=== PATIENT | female | born 1995 | race Caucasian/White ===

== ENCOUNTER 2017-03-14 10:21 | Outpatient (CLI) | payer OTHER | END 2017-03-14 10:22 | LOC: LABRHC 10:21 | PROVIDERS: ATTEND Physician Assistant | DX: N89.8 Other specified noninflammatory disorders of vagina (principal); R30.0 Dysuria | CPT/HCPCS: 87086; 87491; 87591 ==

== ENCOUNTER 2017-04-19 14:53 | Outpatient (CLI) | payer OTHER ==
[2017-04-19 15:12] LABS: EOSINOPHILS % 4.4 % (0.0-6.8); MEAN CORPUSCULAR HEMOGLOBIN 28.4 pg (28.0-34.0); MEAN CORPUSCULAR VOLUME 86.2 fl (80.0-100.0); NEUTROPHILS # 3.4 # k/uL (1.4-7.7)
[2017-04-19 15:36] LABS: eGFR (African) > 60; eGFR (Non-African) > 60
== END 2017-04-19 14:54 ==
LOC: LAB 14:53
PROVIDERS: ATTEND Psychiatry & Neurology Psychiatry
DX: Z79.899 Other long term (current) drug therapy (principal)
CPT/HCPCS: 36415; 80053; 82248; 83036; 85025

== ENCOUNTER 2017-06-19 09:19 | Emergency (ER) | payer OTHER ==
--- NOTE | 2017-06-19 09:34 | ED Physician Documentation ---
General Adult - HISTORIAN Historian: patient - HPI Stated Complaint: L flank pain Chief Complaint: General Adult Onset: days ago (4) Timing: still present Severity: moderate Further Comments: yes (Pt is a 21 yo female with L flank pain x 4 days. Pt's LMP began 2 days ago. No n/v, no fever. Pt reports normal bm's. Pt had pneumonia several months ago, which was difficult to treat. Pt wonders if this could be pneumonia again.) - ROS CONST: no problems EYES/ENT: none CVS/RESP: none GI/: abdominal pain MS/SKIN/LYMPH: none - PAST HX Past History: other (bipolar d/o) Allergies/Adverse Reactions: Allergies Allergy/AdvReac Type Severity Reaction Status Date / Time No Known Drug Allergies Allergy Verified 06/19/17 09:48 - SOCIAL HX Smoking History: non-smoker - FAMILY HX Family History: No - REVIEWED ASSESSMENTS Nursing Assessment Reviewed: Yes Vitals Reviewed: Yes Progress - Progress Progress: CXR: No acute pulmonary process. X-ray abd: No obstruction. Moderate large bowel stool - constipation. No suspicious calcifications by plain film sensitivity. d/c instructions: Drink plenty of fluids such as Gatorade. May try [id number] laxatives, such as Magnesium Citrate--drink 1/2 bottle , if no bowel movement after 6 hrs, drink the remaining 1/2 bottle. General Adult Physical Exam - PHYSICAL EXAM GENERAL APPEARANCE: mild distress EENT: pharynx normal NECK: normal inspection, supple RESPIRATORY: no resp distress, chest non-tender, breath sounds normal CVS: reg rate & rhythm, heart sounds normal ABDOMEN: soft, no organomegaly, normal bowel sounds BACK: normal inspection, no CVA tenderness SKIN: warm/dry, normal color EXTREMITIES: non-tender, normal range of motion, no evidence of injury NEURO: oriented X3, motor nml, sensation nml Discharge Clincal Impression: abd pain, constipation Referrals: Primary Doctor,No [Primary Care Provider] - Condition: Stable Disposition: 01 HOME, SELF-CARE Decision to Admit: NO Decision Time: 12:27
[2017-06-19 09:47] VITALS: BP 105/69
--- NOTE | 2017-06-19 11:34 | Diagnostic Imaging Report ---
[facility] [address] [facility] [address] [place], [place]. [address] Report Submission Date: Jun 19, 2017 11:14:07 AM CDT Patient Study Name: VADIM ALFORD Date: Jun 19, 2017 10:52:01 AM CDT Modality Type: CR Gender: F Description: CHEST : 89 Institution: [facility] Physician: YAEL WANG - ER Examination: PA and lateral chest. History: Evaluate lung mccray. Comparison exam: None available. Findings: PA lateral chest demonstrate a normal cardiac and mediastinal silhouette. No focal infiltrate. No effusion. No blunting of the costophrenic margins. Osseous structures are appropriate for age. Impression: No acute pulmonary process. Electronically signed on Jun 19, 2017 11:14:07 AM CDT by: Teo VAIL
--- NOTE | 2017-06-19 11:36 | Diagnostic Imaging Report ---
[facility] [place] [facility] [address] [facility].[address] [address] Report Submission Date: Jun 19, 2017 11:16:18 AM CDT Patient Study Name: VADIM ALFORD Date: Jun 19, 2017 10:56:38 AM CDT Modality Type: CR Gender: F Description: ABDOMEN : 89 Institution: [facility] [place] [facility] Physician: YAEL WANG - ER Examination: Abdomen History: Abdominal discomfort Findings: 2 views obtained of the abdomen. No abnormal dilation of the large or small bowel. Air and stool throughout the large bowel. Moderate to large amount of stool within the cecum, ascending colon and rectosigmoid region. No suspicious calcification projecting over the renal fossa or the lower pelvic region. Osseous structures are appropriate for age. Impression: No obstruction. Moderate large bowel stool as described - constipation. No suspicious calcifications by plain film sensitivity. Electronically signed on Jun 19, 2017 11:16:18 AM CDT by: Teo VAIL
[2017-06-19 11:54] LABS: BASOPHILS % 0.8 (0.0-1.5); EOSINOPHILS % 4.5 % (0.0-6.8); MEAN CORPUSCULAR HEMOGLOBIN 27.6 pg (28.0-34.0); MEAN CORPUSCULAR VOLUME 82.4 fl (80.0-100.0); MONOCYTES % 4.6 % (0.0-11.0); NEUTROPHILS # 3.2 # k/uL (1.4-7.7)
[2017-06-19] MEDS: 0.9 % SODIUM CHLORIDE 1,000 ML IV ONE (12:05)
[2017-06-19] MEDS: KETOROLAC TROMETHAMINE 30 MG/1ML VIAL IVP ONE (12:05)
[2017-06-19] MEDS: KETOROLAC TROMETHAMINE 60 MG/2 ML VIAL IM ONE (12:10)
[2017-06-19 12:13] LABS: eGFR (African) > 60; eGFR (Non-African) > 60
[2017-06-20 05:29] LABS: APPEARANCE,URINE CLEAR (CLEAR); COLOR,URINE YELLOW (YELLOW); OCCULT BLOOD,URINE NEGATIVE (NEGATIVE); UROBILINOGEN URINE 0.2 Eu (0.2-1.0)
== END 2017-06-19 12:32 | disposition home or self-care (01) ==
LOC: ED 09:19
DX: R10.9 Unspecified abdominal pain (principal); K59.00 Constipation, unspecified
CPT/HCPCS: 36415; 71020; 74000; 80053; 85025; 86308; J1885; 81002; 81025; 96372; 99283; S1016

== ENCOUNTER 2017-10-19 13:46 | Outpatient (CLI) | payer BC ==
--- NOTE | 2017-10-19 14:48 | Diagnostic Imaging Report ---
IRAIS ARBOLEDA [facility] [address] [facility] [address] 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 No anterior compression. No abnormal listhesis. No odontoid abnormality. No prevertebral abnormality Impression: No acute osseous abnormality. If patient has experiencing neurologic symptoms, consider obtaining MRI to further evaluate. Electronically signed on Oct 19, 2017 2:19:19 PM FALSEWORK BUILDER by: Teo VAIL
== END 2017-10-19 13:47 ==
LOC: RAD 13:46
PROVIDERS: ATTEND Physician Assistant
DX: M54.2 Cervicalgia (principal)
CPT/HCPCS: 72040

== ENCOUNTER 2017-12-08 16:35 | Outpatient (CLI) | payer BC | END 2017-12-08 16:45 | LOC: LABRHC 16:35 | PROVIDERS: ATTEND Physician Assistant | DX: R30.0 Dysuria (principal) | CPT/HCPCS: 87086 ==

== ENCOUNTER 2017-12-12 03:08 | Emergency (ER) | payer SELFPAY ==
[2017-12-12] MEDS: LORazepam 1 MG TABLET PO ONE (04:06)
[2017-12-12] MEDS: IBUPROFEN 200 MG TABLET PO ONE (04:06)
--- NOTE | 2017-12-12 04:13 | ED Physician Documentation ---
General Adult - HISTORIAN Historian: patient - HPI Stated Complaint: Sore Throat Chief Complaint: General Adult Onset: hours Timing: worse Further Comments: yes (22 year old female patient presents with complaint of severe sore throat, states she had to leave work it hurt so bad.) - ROS CONST: no problems EYES/ENT: sore throat CVS/RESP: cough. denies: chest pain, shortness of breath GI/: none MS/SKIN/LYMPH: none NEURO/PSYCH: headache - PAST HX Past History: other (Depression) Allergies/Adverse Reactions: Allergies Allergy/AdvReac Type Severity Reaction Status Date / Time No Known Drug Allergies Allergy Verified 12/12/17 03:20 Home Medications: Ambulatory Orders Medication Instructions Recorded Escitalopram Oxalate [Lexapro] 20 mg PO DAILY 12/12/17 Lamotrigine [Lamictal] 100 mg PO DAILY 12/12/17 Norgestimate-Ethinyl Estradiol 1 tab PO DAILY 12/12/17 [Tri-Sprintec Tablet] Prazosin HCl 1 mg PO DAILY 12/12/17 - SOCIAL HX Smoking History: non-smoker - FAMILY HX Family History: No - VITAL SIGNS Vital Signs: Vital Signs Temp Pulse Resp BP Pulse Ox 97.2 F L 78 18 113/86 99 12/12/17 03:10 12/12/17 03:10 12/12/17 03:10 12/12/17 03:10 12/12/17 03:10 - REVIEWED ASSESSMENTS Nursing Assessment Reviewed: Yes Vitals Reviewed: Yes Progress - Progress Progress: Strep negative, Influenza negative - reviewed discharge instructions. Patient became very upset crying and yelling "but what about the swelling". Patient now reporting "swelling" in her left eye, abdomen and throat. No edema visualized. No complaint of swelling during H&P and ROS. Reviewed Katey Torres's note from 12/08/17 - Patient seen at [facility] on 12/07/17 - negative CBC, CMP and UA. States she went to [facility] for labs and CT ordered by Bharati Torres; no results in our system. Patient crying, anxious upset. Reassurance provided, explained previous workups were negative. Explained she needed to keep her appointment with Jayla for follow up on her "swelling". Will not repeat labs at this time, Vitals stable, no indication. Patient c/o severe sore throat - medicated with ibuprofen; Ativan given for anxiety. Patient calm and cooperative at discharge. ED Results Lab/Radiology - Orders Orders: ED Orders Category Date Time Status Ibuprofen [Advil] Med 12/12/17 04:06 Discontinued 600 mg PO NOW ONE LORazepam [Ativan] Med 12/12/17 04:07 Discontinued 1 mg PO NOW ONE General Adult Physical Exam - PHYSICAL EXAM GENERAL APPEARANCE: mild distress EENT: eye inspection normal, ENT inspection normal, pharynx normal, no signs of dehydration, BELINDA, no nystagmus, TM's nml RESPIRATORY: no resp distress, chest non-tender, breath sounds normal CVS: reg rate & rhythm, heart sounds normal, equal pulses, no murmur, no gallop , PMI nml, no JVD, no friction rub, 24 ABDOMEN: soft, no organomegaly, normal bowel sounds, no abdominal bruit, no distension SKIN: normal color, warm/dry, NR, INT, PAL, DR EXTREMITIES: non-tender, normal range of motion, no evidence of injury, no edema , J, RN [facility] NEURO: oriented X3, CN's nml as tested, motor nml, sensation nml, mood/affect nml Discharge Clincal Impression: Sore throat (viral), Anxiety Referrals: Jayla Torres PA [Primary Care Provider] - 2 Days Additional Instructions: Follow up with Bharati Torres at your appointment today. Rest Condition: Stable Disposition: 01 HOME, SELF-CARE Decision to Admit: NO Decision Time: 04:17
[2017-12-12 04:17] VITALS: BP 110/68
== END 2017-12-12 04:16 | disposition home or self-care (01) ==
LOC: ED 03:08
DX: J02.9 Acute pharyngitis, unspecified (principal)
CPT/HCPCS: 87070; 87400; 87880; 99282

== ENCOUNTER 2017-12-12 09:34 | Outpatient (CLI) | payer BC ==
[2017-12-12 04:17] VITALS: BP 110/68
== END 2017-12-12 09:50 ==
LOC: LAB 09:34
PROVIDERS: ATTEND Physician Assistant
DX: R20.0 Anesthesia of skin (principal)
CPT/HCPCS: 36415; 82607; 84439; 84443; 84481; 85651

== ENCOUNTER 2018-01-26 14:33 | Outpatient (CLI) | payer BC | END 2018-01-26 14:35 | LOC: LAB 14:33 | PROVIDERS: ATTEND Physician Assistant | DX: N92.6 Irregular menstruation, unspecified (principal); Z34.90 Encounter for supervision of normal pregnancy, unspecified, unspecified trimester | CPT/HCPCS: 36415; 84702 ==

== ENCOUNTER 2018-06-18 12:09 | Emergency (ER) | payer BC ==
--- NOTE | 2018-06-18 12:14 | ED Physician Documentation ---
General Adult - HISTORIAN Historian: patient - HPI Stated Complaint: mild abd pain in , ? dehydration Chief Complaint: General Adult Onset: days ago (1) Timing: still present Severity: moderate Further Comments: yes (Pt is a 22 yo female @ approx 26 weeks, who has had mild abd pain, constipation, dysuria, sore throat and nausea. Pt says she thinks she is dehydrated. No vag bleeding or vag fluid. Pt has had chills. Pt has not been eating well.) - ROS CONST: chills EYES/ENT: sore throat CVS/RESP: none GI/: nausea MS/SKIN/LYMPH: none NEURO/PSYCH: dizziness - PAST HX Past History: other (bipolar d/o) Allergies/Adverse Reactions: Allergies Allergy/AdvReac Type Severity Reaction Status Date / Time No Known Drug Allergies Allergy Verified 12/12/17 03:20 Home Medications: Ambulatory Orders Medication Instructions Recorded Escitalopram Oxalate [Lexapro] 20 mg PO DAILY 12/12/17 Lamotrigine [Lamictal] 100 mg PO DAILY 12/12/17 Prazosin HCl 1 mg PO DAILY 12/12/17 - SOCIAL HX Smoking History: non-smoker - FAMILY HX Family History: No - VITAL SIGNS Vital Signs: Vital Signs Temp Pulse Resp BP Pulse Ox 110/68 12/12/17 04:16 - REVIEWED ASSESSMENTS Nursing Assessment Reviewed: Yes Vitals Reviewed: Yes Progress - Progress Progress: FHT's 146 u/a 4+ ketones, s.g. > 1.030 glucose = 75 NS 1 L IVF x 2 improved handout for diet in given General Adult Physical Exam - PHYSICAL EXAM GENERAL APPEARANCE: mild distress EENT: pharynx normal NECK: normal inspection, supple RESPIRATORY: no resp distress, chest non-tender, breath sounds normal CVS: reg rate & rhythm, heart sounds normal ABDOMEN: soft, no organomegaly, normal bowel sounds, other (gravid c/w 26 wks) BACK: normal inspection, no CVA tenderness SKIN: warm/dry, normal color EXTREMITIES: non-tender, normal range of motion, no evidence of injury NEURO: oriented X3, motor nml, sensation nml Discharge Clincal Impression: nausea in Referrals: Jayla Torres PA [Primary Care Provider] - Condition: Stable Disposition: 01 HOME, SELF-CARE Decision to Admit: NO Decision Time: 20:12
[2018-06-18] MEDS ORDERED: 0.9 % SODIUM CHLORIDE 1,000 ML IV ONE ×2 (12:15→13:45)
[2018-06-18 12:46] LABS: APPEARANCE,URINE CLEAR (CLEAR); COLOR,URINE AMBER (YELLOW); OCCULT BLOOD,URINE NEGATIVE (NEGATIVE)
[2018-06-18 12:58] LABS: eGFR (Non-African) > 60
[2018-06-18 13:31] LABS: BASO % 0.2 % (0.0-1.5); EOS % 0.6 % (0.0-6.8); LYMPH ABS # 0.95 thou/uL (0.60-4.00); MCH. 28.1 pg (28.0-34.0); MCV 85.5 fL (80.0-100.0); MONOCYTE % 3.6 % (0.0-11.0); MONOCYTE ABS # 0.28 thou/uL (0.00-0.90); PLATELET COUNT 325 thou/uL (130-400)
[2018-06-18 15:37] VITALS: BP 112/74
== END 2018-06-18 14:54 | disposition home or self-care (01) ==
LOC: ED 12:09
DX: R11.0 Nausea (principal); Z3A.26 26 weeks gestation of pregnancy
CPT/HCPCS: 80053; 81002; 85025; 87070; 87880; J7030; 96365; 96366; S1016